=== PATIENT | female | born 1950 | race Two or more races ===

== ENCOUNTER 2020-07-08 04:36 | Emergency (ER) | payer OTHER ==
[~2020-07-08] VITALS: Ht 160 cm; Wt 61.2 kg
[2020-07-08] MEDS ORDERED: LANTUS SOL100 UNIT/1 (04:46)
[2020-07-08] MEDS ORDERED: KETO10TA2 PO (06:23)
== END 2020-07-08 06:28 | disposition home or self-care (01) ==
LOC: ER 04:36
DX: S82.042A Displaced comminuted fracture of left patella, initial encounter for closed fracture (principal); W18.39XA Other fall on same level, initial encounter; Y93.89 Activity, other specified; Y92.098 Other place in other non-institutional residence as the place of occurrence of the external cause; Y99.8 Other external cause status

== ENCOUNTER 2020-07-12 06:39 | Day surgery (SDC) | payer OTHER ==
[~2020-07-12 06:39] MED LIST: KETO10TA2 PO; LANTUS SOL100 UNIT/1
[2020-07-12] MEDS ORDERED: CIPRO500 MG PO (17:20)
[2020-07-12] MEDS ORDERED: PERCOCET 5-3251 EACH PO (17:20)
[2020-07-12] MEDS ORDERED: ASA325 MG PO (17:20)
== END 2020-07-12 22:43 | disposition home or self-care (01) ==
LOC: CIR.AMB 06:39
PROVIDERS: ATTEND Orthopaedic Surgery
DX: S82.042D Displaced comminuted fracture of left patella, subsequent encounter for closed fracture with routine healing (principal); S76.112D Strain of left quadriceps muscle, fascia and tendon, subsequent encounter; Z20.822 Contact with and (suspected) exposure to COVID-19

== ENCOUNTER 2022-04-16 14:40 | Outpatient (CLI) | payer OTHER ==
[~2022-04-16 14:40] MED LIST changes: +ASA325 MG PO; +CIPRO500 MG PO; +PERCOCET 5-3251 EACH PO
== END 2022-04-16 15:30 | disposition home or self-care (01) ==
LOC: ASH CLINIC 14:40
PROVIDERS: ATTEND Obstetrics & Gynecology
DX: U07.1 COVID-19 (principal)

== ENCOUNTER 2023-02-02 17:51 | Emergency (ER) | payer OTHER ==
[~2023-02-02] VITALS: Ht 160 cm; Wt 63.5 kg
== END 2023-02-03 00:36 | disposition home or self-care (01) ==
LOC: ER 17:51
PROVIDERS: Emergency Medicine
DX: B34.9 Viral infection, unspecified (principal); J10.1 Influenza due to other identified influenza virus with other respiratory manifestations